=== PATIENT | male | born 1945 | race Caucasian/White ===

== ENCOUNTER → 2016-11-21 | Outpatient (CLI) | payer MEDICARE, OTHER ==
[~2016-11-21] MED LIST: ASPI-515 PO; CIPR500T87 PO; DOCU-30 PO; ENAL20TA PO; LEVO125T45 PO; NIAC500T4 PO; OMEG1CAP62 PO; OMEP-110 PO; OXYC1TAB7 PO; OXYC5TAB3 PO; RED600TA PO; TAMS-11 PO
== END | disposition home or self-care (01) ==
LOC: CFH 07:17
PROVIDERS: ATTEND Orthopaedic Surgery
DX: M19.011 Primary osteoarthritis, right shoulder (principal); M75.101 Unspecified rotator cuff tear or rupture of right shoulder, not specified as traumatic